=== PATIENT | female | born 1990 | race Caucasian/White ===

== ENCOUNTER → 2020-05-06 15:14 | Outpatient (BNVA) | payer OTHER, SELFPAY | PROVIDERS: PCP Physician Assistant; Visit Provider Internal Medicine Gastroenterology | DX: R19.7 Diarrhea, unspecified (principal); R10.10 Upper abdominal pain, unspecified; K21.9 Gastro-esophageal reflux disease without esophagitis | CPT/HCPCS: Q3014 ==

== ENCOUNTER → 2020-06-29 11:12 | Outpatient (BNVA) | payer OTHER, SELFPAY | PROVIDERS: PCP Physician Assistant; Visit Provider Internal Medicine Gastroenterology | DX: R10.10 Upper abdominal pain, unspecified (principal); R19.7 Diarrhea, unspecified; K21.9 Gastro-esophageal reflux disease without esophagitis; R79.82 Elevated C-reactive protein (CRP) | CPT/HCPCS: Q3014 ==

== ENCOUNTER 2021-09-26 18:20 | Outpatient (REF) | payer OTHER, SELFPAY ==
[2021-10-04 00:36] LABS: Calprotectin, Fecal 28 mcg/g
== END 2021-09-26 18:21 | disposition home or self-care (01) ==
LOC: HO.LNP 18:20
PROVIDERS: Visit Provider Internal Medicine Gastroenterology
DX: R79.82 Elevated C-reactive protein (CRP) (principal); R19.7 Diarrhea, unspecified
CPT/HCPCS: 83993

== ENCOUNTER → 2021-10-20 11:11 | Outpatient (BNVA) | payer OTHER, SELFPAY | PROVIDERS: Visit Provider Internal Medicine Gastroenterology | DX: R79.82 Elevated C-reactive protein (CRP) (principal); R19.7 Diarrhea, unspecified; R10.10 Upper abdominal pain, unspecified; K21.9 Gastro-esophageal reflux disease without esophagitis; R14.0 Abdominal distension (gaseous) | CPT/HCPCS: 99212 ==

== ENCOUNTER 2021-12-07 08:46 | Outpatient (REF) | payer OTHER, SELFPAY ==
--- NOTE | ~2021-12-07 | US_ITS ---
EXAMINATION: US ABDOMEN COMPLETE CLINICAL INFORMATION: Gaseous abdominal distention. COMPARISON: X-ray KUB 12/07/2021. TECHNIQUE: Real-time imaging of the abdominal viscera. FINDINGS: PANCREAS: The entire pancreas is obscured by gas. ABDOMINAL AORTA: The proximal, mid, and distal segments are normal in caliber. INFERIOR VENA CAVA: Visualized portions are normal. LIVER: The liver is normal in size. The liver contour is normal. Parenchymal echogenicity is normal. There is a complex lesion in the right hepatic lobe measuring 3.2 x 2.7 x 3.0 cm. There is no intrahepatic biliary duct dilatation seen. GALLBLADDER: Gallbladder wall thickness is 0.2 cm. The gallbladder is physiologically distended without evidence of stones, sludge, polyps, wall thickening or pericholecystic fluid. COMMON BILE DUCT: Normal in caliber measuring 0.2 cm in diameter. RIGHT KIDNEY: Normal. No hydronephrosis. No renal calculi or focal parenchymal lesions. The kidney measures 10.1 cm in maximum dimension. LEFT KIDNEY: Normal. No hydronephrosis. No renal calculi or focal parenchymal lesions. The kidney measures 10.4 cm in maximum dimension. SPLEEN: Normal. The spleen measures 10.7 cm in maximum dimension. FREE FLUID: None. US/US abdomen complete IMPRESSION: Complex lesion right hepatic lobe measuring 3.[address] liver with and without contrast for further evaluation. Rest of the abdominal ultrasound is unremarkable.
--- NOTE | ~2021-12-07 | XR_ITS ---
EXAMINATION: XR ABDOMEN KUB CLINICAL INDICATION: Abdominal distention. Pain. COMPARISON: None TECHNIQUE: AP view of the abdomen. FINDINGS: There is a nonobstructive bowel gas pattern. No dilated loops of bowel. Gas and stool throughout the colon with mild to moderate colonic stool burden. The lung bases are clear. No suspicious calcification. No acute osseous abnormality. XR/XR KUB IMPRESSION: Normal bowel gas pattern. Mild to moderate colonic stool burden.
== END 2021-12-07 08:47 | disposition home or self-care (01) ==
LOC: HO.US 08:46
PROVIDERS: PCP Family Medicine; Visit Provider Internal Medicine Gastroenterology
DX: R14.0 Abdominal distension (gaseous) (principal)
CPT/HCPCS: 74018; 76700

== ENCOUNTER 2022-01-18 14:20 | Outpatient (REF) | payer OTHER, SELFPAY ==
--- NOTE | ~2022-01-18 | CT_ITS ---
EXAMINATION: CT OF THE ABDOMEN WITH AND WITHOUT CONTRAST CLINICAL INFORMATION: Follow-up liver lesion seen on ultrasound COMPARISON: Previous abdominal ultrasound November 2021 TECHNIQUE: Axial images through the liver with and without IV contrast. Arterial and portal phase imaging was performed. FINDINGS: There is a 4 mm left lower lobe nodule axial image 1 series 9. The lung bases are otherwise clear. Liver is normal in size, shape and contour. There is a 2.6 x 3.4 cm lesion in the anterior segment of the right lobe of the liver. This is low in attenuation free contrast. This demonstrates early arterial phase peripheral puddling enhancement and remains enhanced peripherally on portal phase imaging. No washout or pseudocapsule formation. No other liver lesion. Normal gallbladder. No biliary duct dilatation Normal spleen. Normal pancreas. Normal adrenal glands. Normal kidneys. Mild diverticulosis of the colon. Visualized bowel is otherwise unremarkable. No ascites or adenopathy. Normal vascular structures. Small umbilical hernia containing fat. Bony structures are unremarkable. CT/CT liver 3 phase IMPRESSION: 2.6 x 3.4 cm lesion in the anterior segment of the right lobe liver. This may represent an atypical hemangioma. This could be better evaluated with liver MRI. Diverticulosis of the colon. 4 mm left lower lobe nodule. Follow-up chest CT recommended.
[2022-01-18] MEDS: iohexoL 350 MG/ML 100 ML INFUS..BTL IV (15:12)
== END 2022-01-18 14:21 | disposition home or self-care (01) ==
LOC: HO.CT 14:20
PROVIDERS: PCP Family Medicine; Visit Provider Internal Medicine Gastroenterology
DX: R93.5 Abnormal findings on diagnostic imaging of other abdominal regions, including retroperitoneum (principal)
CPT/HCPCS: 74170; Q9967

== ENCOUNTER → 2022-04-13 11:00 | Outpatient (BNVA) | payer OTHER, SELFPAY | PROVIDERS: Visit Provider Internal Medicine Gastroenterology | DX: R10.10 Upper abdominal pain, unspecified (principal) | CPT/HCPCS: 99212 ==

== ENCOUNTER 2022-05-25 14:30 | Outpatient (REF) | payer OTHER, SELFPAY ==
--- NOTE | ~2022-05-25 | MR_ITS ---
EXAMINATION: MR ABDOMEN WITHOUT AND WITH CONTRAST CLINICAL INFORMATION: Abnormal findings on diagnostic imaging in the abdominal region COMPARISON: [address] 01/18/2022 TECHNIQUE: MRI of the abdomen before and after the IV administration of 10 mL of Gadavist was obtained using routine sequences. FINDINGS: LUNG BASES: The visualized lung bases are unremarkable. KIDNEYS AND URETERS: Unremarkable. GALLBLADDER: Unremarkable. LIVER AND BILIARY TREE: The liver is normal in signal and morphology. A 3.3 cm T2 hyperintense liver lesion in the right hepatic lobe with discontinuous peripheral nodular enhancement and gradual fill-in compatible with a hemangioma. No suspicious liver lesion. No intra or extrahepatic biliary duct dilatation. PANCREAS: Unremarkable SPLEEN: Unremarkable ADRENAL GLANDS: Unremarkable GASTROINTESTINAL TRACT: Unremarkable. LYMPH NODES: No lymphadenopathy. VASCULAR: Unremarkable ABDOMINAL WALL: Unremarkable. OSSEOUS STRUCTURES: Unremarkable. MR/MR abdomen wo/w con IMPRESSION: A 3.3 cm hepatic hemangioma. No suspicious liver lesion.
== END 2022-05-25 14:31 | disposition home or self-care (01) ==
LOC: HO.MRI 14:30
PROVIDERS: PCP Registered Nurse; Visit Provider Internal Medicine Gastroenterology
DX: R93.5 Abnormal findings on diagnostic imaging of other abdominal regions, including retroperitoneum (principal)
CPT/HCPCS: 74183

== ENCOUNTER → 2022-07-06 08:53 | Outpatient (BNVA) | payer OTHER, SELFPAY | PROVIDERS: Visit Provider Internal Medicine Gastroenterology ==